=== PATIENT | female | born 1990 | race Caucasian/White ===

== ENCOUNTER 2023-02-13 08:41 | Day surgery (SDC) | payer OTHER ==
[~2023-02-13] VITALS: Ht 137.2 cm; Wt 49.9 kg
[2023-02-13 09:25] LABS: BASOPHILS % (AUTO) 0.3 % (0.0-2.0); EOSINOPHILS # (AUTO) 0.1 K/uL (0-0.4); EOSINOPHILS % (AUTO) 1.8 % (0.0-4.0); HEMATOCRIT 40.5 % (36-48); HEMOGLOBIN 13.2 g/dL (12.0-16.0); LYMPHOCYTES # (AUTO) 0.8 K/uL (2.5-16.5); LYMPHOCYTES % (AUTO) 10.7 % (20.5-51.1); MEAN CORPUSCULAR HEMOGLOBIN 29 pg (27-31); MEAN CORPUSCULAR HGB CONC 33 g/dL (33-37); MEAN CORPUSCULAR VOLUME 89.3 fL (80-94); MONOCYTES # (AUTO) 0.6 K/uL (0.8-1.0); MONOCYTES % (AUTO) 7.3 % (1.7-9.3); NEUTROPHILS # (AUTO) 6.1 K/uL (1.8-7.7); NEUTROPHILS % (AUTO) 79.9 % (42.2-75.2); PLATELET COUNT (AUTO) 85 K/uL (140-450); RED BLOOD CELL COUNT(AUTO) 4.53 MIL/uL (4.20-5.40); RED CELL DISTRIBUTION WIDTH 13.9 % (11.6-13.7); WHITE BLOOD COUNT (AUTO) 7.6 K/uL (4.8-10.8)
[2023-02-13 09:38] LABS: ALBUMIN 3.2 g/dL (3.4-5.0); ANION GAP 11.3 (8-16); CALCIUM 8.8 mg/dL (8.5-10.1); CARBON DIOXIDE 28.6 mmol/L (21-32); POTASSIUM 3.9 mmol/L (3.5-5.1); TOTAL BILIRUBIN 0.4 mg/dL (0.0-1.0); TOTAL PROTEIN, SERUM 6.9 g/dL (6.4-8.2)
[2023-02-13] MEDS ORDERED: PROPOFOL 200 MG/20 ML VIAL IV ONE ×2 (09:40→12:16)
[2023-02-13] MEDS ORDERED: ONDANSETRON 4 MG/2 ML VIAL IVP PRN (09:40)
[2023-02-13] MEDS ORDERED: LACTATED RINGERS 1,000 ML IV SCH (09:40)
[2023-02-13] MEDS ORDERED: fentaNYL citrate 0.05 MG/ML VIAL ONE (09:43)
== END 2023-02-13 13:35 | disposition home or self-care (01) ==
LOC: MDS 08:41 → MMU 08:42 → MDS 13:35
PROVIDERS: ATTEND Internal Medicine Gastroenterology
DX: R19.7 Diarrhea, unspecified (principal); J45.909 Unspecified asthma, uncomplicated; K21.9 Gastro-esophageal reflux disease without esophagitis; K44.9 Diaphragmatic hernia without obstruction or gangrene; Z93.1 Gastrostomy status; Z79.899 Other long term (current) drug therapy; Z90.49 Acquired absence of other specified parts of digestive tract; Z98.890 Other specified postprocedural states
CPT/HCPCS: 36415; 43235; 45380; 80053; 84703; 85025; J2704; J7030; J3010